=== PATIENT | male | born 1945 ===

== ENCOUNTER 2018-03-21 09:53 | Inpatient (IN) | payer MEDICARE ==
[2018-03-21 22:36] VITALS: BMI 25.0
[2018-03-21] MEDS: MORPHINE SULFATE 2 MG/ML SYRINGE IVP PRN (23:16)
[2018-03-21] MEDS ORDERED: ACETAMINOPHEN TAB 325 MG TAB PO PRN (23:26)
[2018-03-21] MEDS: DEXTROSE 5%-0.45% NACL 1,000 ML IV SCH (23:30)
[2018-03-22] MEDS: ALBUTEROL NEBULIZED 2.5 MG/3 ML INHALATION SCH ×6 (00:44→20:32)
[2018-03-22] MEDS: LACTATED RINGERS 1,000 ML IV SCH (00:59)
[2018-03-22] MEDS: MORPHINE SULFATE 2 MG/ML SYRINGE IVP PRN ×4 (01:00→11:31)
[2018-03-22] MEDS: BUDESONIDE 0.5 MG/2 ML NEBU INHALATION SCH ×2 (06:49→20:32)
[2018-03-22] MEDS: IPRATROPIUM-ALBUTEROL 3 ML NEB INHALATION SCH ×4 (07:08→20:32)
[2018-03-22] MEDS: MAGNESIUM OXIDE 400 MG TAB PO SCH (08:55)
[2018-03-22] MEDS: ATORVASTATIN 80 MG TAB PO SCH (08:55)
[2018-03-22] MEDS: amLODIPine 5 MG TAB PO SCH (08:56)
[2018-03-22] MEDS: GABAPENTIN 300 MG CAP PO SCH (08:56)
[2018-03-22] MEDS: METOPROLOL SUCCINATE (ER) 50 MG TAB.ER.24H PO SCH (10:29)
[2018-03-22] MEDS: FLUTICASONE 50MCG/SPRAY NASAL 16GM EA NOSTRIL SCH ×2 (10:30→10:34)
--- NOTE | 2018-03-22 11:18 | XR ---
EXAMINATION TYPE: XR KUB DATE OF EXAM: 03/22/2018 COMPARISON: None HISTORY: Hematuria right side back pain TECHNIQUE: Abdomen is examined in the supine view FINDINGS: There is abundant fecal debris through the colon. Psoas margins are normal. No organomegaly is evident. No mass effect is evident. Suspicious calcifications are not identified. Calcification inferior pole left kidney is not excluded. This measures 0.8 cm. Distal ureteral stone on the right i s not excluded. This could be a phlebolith. This area measures 0.4 cm. IMPRESSION: 1. Possible 0.8 cm inferior pole left renal stone. 2. Distal right ureteral stone measuring 0.4 cm is not excluded. 3. Moderate fecal retention.
[2018-03-22] MEDS ORDERED: LACTATED RINGERS 1,000 ML IV ONE ×2 (11:58)
[2018-03-22] MEDS ORDERED: ONDANSETRON 4 MG/2 ML VIAL IVP ONE (11:59)
[2018-03-22] MEDS ORDERED: ceFAZolin 1,000 MG in DEXTROSE/WATER 1 50ML.BAG IVPB STA (12:34)
--- NOTE | 2018-03-22 12:35 | P.GSHP ---
History of Present Illness H&P Date: 03/22/18 Chief Complaint: Right flank pain The patient is a 72-year-old white male with a history of kidney stones. A recent computed tomography scan showed two 7 mm right renal calculi, and one 7 mm left lower pole renal calculus. He underwent ESWL on 03/13/2018, at which time both right renal calculi were adjacent to one another within a lower pole calyx. He was subsequently admitted with increased right flank pain, and a computed tomography scan showed evidence of right hydronephrosis due to a 6 mm ureteral calculus. He was hospitalized at [facility] but failed conservative management. He was thus transferred to [facility] to undergo ureteroscopic removal of the calculus fragments. A KUB x-ray shows an apparent 4 mm right distal ureteral calculus. - Genitourinary (Female) Genitourinary: Reports flank pain, Reports kidney stones Past Medical History Past Medical History: COPD, Hyperlipidemia, Hypertension, Prostate Disorder Additional Past Medical History / Comment(s): BPH, heart disease, Atrial fibrillation, AAA (3.8 cm in August 2017), Chronic back pain. History of Any Multi-Drug Resistant Organisms: None Reported Past Surgical History: Heart Catheterization With Stent, Hernia Repair, Prostate Surgery Past Anesthesia/Blood Transfusion Reactions: No Reported Reaction Date of Last Stent Placement:: n/a Past Psychological History: No Psychological Hx Reported Smoking Status: Current every day smoker Past Alcohol Use History: None Reported Past Drug Use History: None Reported Medications and Allergies Home Medications Medication Instructions Recorded Confirmed Type Acetaminophen Tab [Tylenol Tab] 650 mg PO Q4H PRN 03/21/18 03/21/18 History Albuterol Sulfate [Proair Hfa] 2 puff INHALATION RT-Q4H PRN 03/21/18 03/21/18 History Aspirin EC [Ecotrin Low Dose] 81 mg PO DAILY 03/21/18 03/21/18 History Atorvastatin Calcium [Lipitor] 80 mg PO HS 03/21/18 03/21/18 History Budesonide [Pulmicort] 0.5 mg INHALATION RT-BID 03/21/18 03/21/18 History Butalb/APAP/Caff 50-325-40Mg 1 tab PO Q4H PRN 03/21/18 03/21/18 History [Fioricet 50-325-40] Fluticasone Nasal [place] [Flonase 1 spray EA NOSTRIL DAILY PRN 03/21/18 03/21/18 History Nasal [place]] Gabapentin [Neurontin] 300 mg PO DAILY 03/21/18 03/21/18 History Hydrocodone/Acetaminophen [[place] 1 tab PO Q4HR PRN 03/21/18 03/21/18 History 5-325] Ipratropium-Albuterol Nebulize 3 ml INHALATION RT-QID 03/21/18 03/21/18 History [Duoneb 0.5 mg-3 mg/3 ml Soln] Magnesium Oxide [Mag-Ox] 500 mg PO DAILY 03/21/18 03/21/18 History Metoprolol Succinate (ER) [Toprol 50 mg PO DAILY 03/21/18 03/21/18 History Xl] Montelukast [Singulair] 10 mg PO DAILY 03/21/18 03/21/18 History Nitroglycerin Sl Tabs [Nitrostat] 0.4 mg SUBLINGUAL Q5M PRN 03/21/18 03/21/18 History amLODIPine BESYLATE 5 mg PO DAILY 03/21/18 03/21/18 History busPIRone HCl [Buspar] 5 mg PO BID 03/21/18 03/21/18 History Allergies Allergy/AdvReac Type Severity Reaction Status Date / Time No Known Allergies Allergy Verified 03/21/18 23:35 Surgical - Exam Vital Signs Temp Pulse Resp BP Pulse Ox 97.5 F L 76 18 160/83 95 03/21/18 22:10 03/21/18 22:10 03/21/18 22:10 03/21/18 22:10 03/21/18 22:10 - General well developed, well nourished, moderate distress - Respiratory normal respiratory effort - Abdomen Abdomen: soft, non tender, no guarding, no rigid, no rebound - Psychiatric oriented to time, oriented to person, oriented to place, speech is normal, memory intact Results - Imaging CT scan - abdomen: report reviewed Assessment and Plan (1) Calculus of ureter Current Visit: Yes Status: Acute Code(s): N20.1 - CALCULUS OF URETER SNOMED Code(s): 30295636 (2) Hydronephrosis with renal and ureteral calculous obstruction Current Visit: Yes Status: Acute Code(s): N13.2 - HYDRONEPHROSIS WITH RENAL AND URETERAL CALCULOUS OBSTRUCTION SNOMED Code(s): 401122449 Plan: Cystoscopy, right ureteroscopy with Holmium laser lithotripsy, right ureteral stent insertion. The procedure has been reviewed in detail with the patient. Potential risks have also been discussed. These include anesthesia, bleeding, infection, ureteral injury, and inability to successfully remove the calculi.
[2018-03-22] MEDS ORDERED: PROPOFOL 10 MG/ML 20 ML VIAL IV ONE (12:41)
[2018-03-22] MEDS ORDERED: SUCCINYLCHOLINE CHLORIDE 100 MG/5 ML SYR IV ONE (12:41)
[2018-03-22] MEDS ORDERED: fentaNYL (PF) 50 MCG/ML 2 ML AMP ONE (12:41)
[2018-03-22] MEDS ORDERED: MIDAZOLAM 2 MG/2 ML VIAL ONE (12:41)
[2018-03-22] MEDS ORDERED: LIDOCAINE 1% INJ 10MG/ML (20 ML MDV) ONE (12:41)
[2018-03-22] MEDS ORDERED: ROCURONIUM BROMIDE 10 MG/ML 10 ML VIAL IV ONE (12:41)
[2018-03-22] MEDS ORDERED: PHENYLEPHRINE-0.9% NACL SYG 1 MG/10 ML SYRINGE ONE (12:41)
--- NOTE | 2018-03-22 13:56 | P.OP ---
Date of Procedure: 03/22/18 Preoperative Diagnosis: Right ureteral calculus Postoperative Diagnosis: Right ureteral calculi Procedure(s) Performed: Cystoscopy, right ureteroscopy with Holmium laser lithotripsy, right ureteral stent insertion Anesthesia: SUAD Surgeon: Tapan Bedoya Estimated Blood Loss (ml): 0 IV fluids (ml): 400 Pathology: other (Calculus fragment, sent for chemical analysis) Condition: stable Disposition: PACU Indications for Procedure: The patient is a 72-year-old white male with a history of kidney stones. A recent computed tomography scan showed two 7 mm right renal calculi, and one 7 mm left lower pole renal calculus. He underwent ESWL on 03/13/2018, at which time both right renal calculi were adjacent to one another within a lower pole calyx. He was subsequently admitted with increased right flank pain, and a computed tomography scan showed evidence of right hydronephrosis due to a 6 mm ureteral calculus. He was hospitalized at [facility] but failed conservative management. He was thus transferred to [facility] to undergo ureteroscopic removal of the calculus fragments. A KUB x-ray shows an apparent 4 mm right distal ureteral calculus. Operative Findings: Several right distal ureteral calculi. No right renal calculi. Description of Procedure: The patient was taken to the operating room and placed in the dorsolithotomy position, with legs supported in Duran stirrups. The external genitalia was prepped and draped sterilely. The 30 lens was used to introduce the 19-[place] Stortz cystoscopic sheath through the urethra and into the bladder under direct vision. The prostatic fossa was open due to a prior TURP. The bladder was examined in its entirety. The left ureteral orifice appeared normal. A calculus was impacted at the right ureteral orifice. The entire bladder was examined. No tumors were seen. 2 bladder diverticuli were seen, the largest of which was located immediately lateral to the right ureteral orifice and measured approximately 2 cm in size. The [facility] semirigid ureteroscope was advanced into the bladder, and the calculus impacted at the right ureteral orifice was simply pried away from the orifice. The ureteroscope was then advanced into the right distal ureter under direct vision. Several calculi were seen. The 200 micron Holmium laser probe was passed through the ureteroscope, and lithotripsy was performed. Lithotripsy was continued until there were no residual calculus fragments exceeding 1-2 mm in size. A 0.035 inch Glidewire was then passed the ureteroscope and up to the right renal pelvis. The semirigid ureteroscope was removed, and the Olympus flexible ureteroscope was advanced over the wire, up to the right renal pelvis. Visualization was poor within the renal pelvis, due to significant debris within the renal pelvis. Approximately 50 mL of cloudy urine was aspirated. Ureteroscopy was repeated, and visualization at this time was good. Although some calculus debris was floating, there were no calculus fragments to warrant lithotripsy. Each calyx was examined. The ureteroscope was slowly withdrawn under direct vision. No additional calculus fragments were seen within the ureter, and there was no evidence of ureteral trauma. The cystoscope was replaced into the bladder under direct vision. The Glidewire was passed through the cystoscope, and the right ureteral orifice was cannulated. The Glidewire was advanced up to the right renal pelvis. The 26 cm , 5-[place] double-J ureteral stent was placed over the wire. Proper stent positioning was verified fluoroscopically and endoscopically. Calculus fragments were removed from the bladder. These were sent for chemical analysis. The cystoscope was removed and the procedure was terminated. The patient tolerated the procedure well was taken to the recovery room in stable condition.
[2018-03-22] MEDS ORDERED: HYDROcodone/APAP 5-325MG 1 EACH TAB PO PRN (13:58)
--- NOTE | 2018-03-22 14:15 | FL ---
Fluoroscopy INDICATION: Pain FINDINGS: Fluoroscopy time: 8 seconds. Images obtained: 1. IMPRESSIONS: 1. Documentation of fluoroscopy.
[2018-03-22] MEDS: DEXTROSE 5%-0.45% NACL 1,000 ML IV SCH (15:40)
[2018-03-22] MEDS: HYDROcodone/APAP 5-325MG 1 EACH TAB PO PRN (15:46)
[2018-03-23] MEDS: ALBUTEROL NEBULIZED 2.5 MG/3 ML INHALATION SCH ×4 (00:40→12:18)
[2018-03-23] MEDS: LACTATED RINGERS 1,000 ML IV SCH (01:28)
[2018-03-23] MEDS: HYDROcodone/APAP 5-325MG 1 EACH TAB PO PRN ×2 (04:03→12:02)
[2018-03-23] MEDS: DEXTROSE 5%-0.45% NACL 1,000 ML IV SCH (04:11)
[2018-03-23 06:08] VITALS: BP 121/73; RESP 16; TEMP 98.5
[2018-03-23] MEDS: MORPHINE SULFATE 2 MG/ML SYRINGE IVP PRN (06:51)
[2018-03-23] MEDS: ATORVASTATIN 80 MG TAB PO SCH (08:06)
[2018-03-23] MEDS: MAGNESIUM OXIDE 400 MG TAB PO SCH (08:07)
[2018-03-23] MEDS: IPRATROPIUM-ALBUTEROL 3 ML NEB INHALATION SCH ×2 (08:08→12:18)
[2018-03-23] MEDS: amLODIPine 5 MG TAB PO SCH (08:08)
[2018-03-23] MEDS: FLUTICASONE 50MCG/SPRAY NASAL 16GM EA NOSTRIL SCH (08:08)
[2018-03-23] MEDS: BUDESONIDE 0.5 MG/2 ML NEBU INHALATION SCH (08:08)
[2018-03-23] MEDS: GABAPENTIN 300 MG CAP PO SCH (08:08)
[2018-03-23] MEDS: METOPROLOL SUCCINATE (ER) 50 MG TAB.ER.24H PO SCH (08:08)
[2018-03-23 09:55] VITALS: PULSE 68
== END 2018-03-23 12:55 | disposition home or self-care (01) | DRG 661 ==
LOC: 3NMEDONC 22:02
PROVIDERS: ADMIT Urology; ATTEND Urology
PROC: 0TC68ZZ Extirpation of Matter from Right Ureter, Via Natural or Artificial Opening Endoscopic (ICD-10-PCS; principal; 2018-03-22 12:30)
PROC: 0T768DZ Dilation of Right Ureter with Intraluminal Device, Via Natural or Artificial Opening Endoscopic (ICD-10-PCS; 2018-03-22 12:30)
DX: N13.2 Hydronephrosis with renal and ureteral calculous obstruction (principal); E78.5 Hyperlipidemia, unspecified; F17.210 Nicotine dependence, cigarettes, uncomplicated; I10 Essential (primary) hypertension; J44.9 Chronic obstructive pulmonary disease, unspecified; N40.0 Benign prostatic hyperplasia without lower urinary tract symptoms; G89.29 Other chronic pain; I71.4 Abdominal aortic aneurysm, without rupture; I25.10 Atherosclerotic heart disease of native coronary artery without angina pectoris; I48.91 Unspecified atrial fibrillation; N32.3 Diverticulum of bladder; Z79.82 Long term (current) use of aspirin; Z79.899 Other long term (current) drug therapy; Z87.442 Personal history of urinary calculi; Z95.5 Presence of coronary angioplasty implant and graft
CPT/HCPCS: 74018; 82365; 94640; 94760